=== PATIENT | male | born 1940 | race Caucasian/White ===

== ENCOUNTER 2017-11-14 19:15 | Inpatient (IN) | payer MEDICARE ==
[~2017-11-14] VITALS: Ht 182.9 cm; Wt 84.2 kg
--- NOTE | ~2017-11-14 | PN ---
PATIENT:AKHIL CURRAN MEDICAL RECORD: [id number] LOCATION:[facility] ADMISSION DATE: 11/14/17 PROGRESS NOTE DATE OF SERVICE: 11/16/2017 SUBJECTIVE: The patient's case was discussed with staff. He has no new complaint. OBJECTIVE: The patient is in good behavioral control with poor insight about his condition. He tolerates his medicines well. ASSESSMENT: No change in diagnoses. PLAN: The patient slept 10-1/2 hours last night. I am going to discontinue his trazodone and he has had no aggressive behaviors today. TRANSINT:[id number] Voice Confirmation ID: [id number] DOCUMENT ID: [id number] CHITO RADFORD MD at 1433 CC: [id number] DICTATION DATE: 11/16/17 1323 VEGETABLE FARMING SUPERVISOR: 11/16/17 1335 ADM IN [place] [id number] [place] [id number]
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
--- NOTE | ~2017-11-14 | PN ---
PATIENT:AKHIL CURRAN MEDICAL RECORD: [id number] LOCATION:[facility] ADMISSION DATE: 11/14/17 PROGRESS NOTE DATE OF SERVICE: 11/18/2017 SUBJECTIVE: The patient's case was discussed with staff. He has no new complaint. OBJECTIVE: The patient is in good behavioral control. He has limited insight about his condition. He tolerates his medicines well. ASSESSMENT: No change in diagnoses. PLAN: Brief supportive and educational interventions were made. The patient's long-term prognosis is guarded. TRANSINT:[id number] Voice Confirmation ID: [id number] DOCUMENT ID: [id number] CHITO RADFORD MD at 1349 CC: [id number] DICTATION DATE: 11/18/17 1231 SENIOR ANALYTICAL CHEMIST: 11/18/172027 ADM IN [place] [id number] [place] [address]
--- NOTE | ~2017-11-14 | PN ---
PATIENT:AKHIL CURRAN MEDICAL RECORD: [id number] LOCATION:[facility] ADMISSION DATE: 11/14/17 PROGRESS NOTE DATE OF SERVICE: 11/20/2017 SUBJECTIVE: The patient's case was discussed with staff. He has no new complaint. OBJECTIVE: The patient is in good behavioral control with no aggressive behaviors. He does not appear to be oversedated. ASSESSMENT: No change in diagnoses. PLAN: Supportive and educational interventions were made. I anticipate the patient can be transitioned out of the hospital tomorrow given his current level of improvement. TRANSINT:[id number] Voice Confirmation ID: [id number] DOCUMENT ID: [id number] CHITO RADFORD MD at 1442 CC: [id number] DICTATION DATE: 11/20/17 1439 SUPERANNUATION FUNDS MANAGER: 11/20/17 1738 DIS IN 11/21/17 [place] [id number] [place] [address]
--- NOTE | ~2017-11-14 | PN ---
PATIENT:AKHIL CURRAN MEDICAL RECORD: [id number] LOCATION:[facility] ADMISSION DATE: 11/14/17 PROGRESS NOTE DATE OF SERVICE: 11/17/2017 SUBJECTIVE: The patient's case was discussed with staff. He has no new complaint. OBJECTIVE: The patient is severely impaired cognitively with limited insight about his condition. ASSESSMENT: No change in diagnoses. PLAN: The patient looks a little over sedated. I am going to reduce his Klonopin to 0.5 mg twice daily. His long-term prognosis is guarded. He has not been aggressive today. TRANSINT:[id number] Voice Confirmation ID: [id number] DOCUMENT ID: [id number] CHITO RADFORD MD at 1215 CC: [id number] DICTATION DATE: 11/17/17 1449 MARKET RESEARCH EXECUTIVE: 11/17/172002 ADM IN [facility] [address] [place] [address]
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
--- NOTE | ~2017-11-14 | PN ---
PATIENT:AKHIL CURRAN MEDICAL RECORD: [id number] LOCATION:[facility] ADMISSION DATE: 11/14/17 PROGRESS NOTE DATE OF SERVICE: 11/21/2017 SUBJECTIVE: The patient's case was discussed with staff. He has no new complaint. OBJECTIVE: The patient is in good behavioral control with poor insight about his condition. He has no evidence of acute or direct dangerousness to himself or others. ASSESSMENT: No change in diagnoses. PLAN: The patient will be transitioned out of the hospital today. His long-term prognosis is guarded. TRANSINT:[id number] Voice Confirmation ID: [id number] DOCUMENT ID: [id number] CHITO RADFORD MD at 1637 CC: [id number] DICTATION DATE: 11/21/17 1448 HAND MODEL: 11/21/17 1507 DIS IN 11/21/17 [place] [id number] [place] [address]
[~2017-11-14 19:15] MED LIST: ASPIRIN325 MG PO; ATIVAN0.5 MG PO; CHLORTHALIDONE25 MG PO; DILANTIN100 MG PO; DULCOLAX5 MG PO; ELIQUIS5 MG PO; HYDROCODONE-APA1 TAB PO; IPRAT-ALBUT 0.5-3 ML IH; LEXAPRO10 MG PO; LIPITOR40 MG PO; LOPRESSOR25 MG PO; MILK OF MAGNESI30 ML PO; SENNA PLUS TA1 UDTAB PO; TRAZODONE HCL50 MG PO; VITAMIN B-121000 MCG PO; VITAMIN D31000 UNIT PO; ZOLOFT50 MG PO
[2017-11-15 05:57] VITALS: BP 129/73; BMI 24.4
[2017-11-15] MEDS ORDERED: LASIX20 MG PO (08:13)
[2017-11-15] MEDS ORDERED: LEVAQUIN500 MG PO (08:15)
[2017-11-15] MEDS ORDERED: KLOR-CON 1010 MEQ PO (08:17)
[2017-11-15] MEDS ORDERED: ZOLOFT100 MG PO (08:20)
[2017-11-15] MEDS ORDERED: TRAZODONE HCL50 MG PO (08:22)
[2017-11-15] MEDS ORDERED: FAMOTIDINE10 MG PO (08:26)
[2017-11-15] MEDS ORDERED: MUCINEX600 MG PO (08:28)
[2017-11-15] MEDS ORDERED: XOPENEX HFA15 GM INH ×2 (08:30→08:37)
[2017-11-15] MEDS ORDERED: TUMS500 MG PO (08:33)
[2017-11-15] MEDS ORDERED: ATIVAN0.5 MG PO (08:35)
[2017-11-15 10:46] VITALS: BP 155/72
[2017-11-15 10:51] VITALS: BMI 24.5
[2017-11-15 12:52] LABS: BASOPHILS 0.3 % (0-2); EOSINOPHILS 4.1 % (0-7); HEMATOCRIT 48.7 % (42.0-54.0); HEMOGLOBIN 16.5 g/dL (13.5-17.5); IMMATURE GRANULOCYTES 0.2 % (0-5); LYMPHOCYTES 28.6 % (15-50); MCH 33.3 pg (26.0-34.0); MCHC 33.9 g/dL (31.0-37.0); MCV 98.4 fL (80.0-100.0); MEAN PLATELET VOLUME 9.6 fL (7.4-10.4); MONOCYTES 8.6 % (2-11); NEUTROPHILS 58.2 % (40-80); RBC 4.95 10x6/uL (4.20-6.10); RDW 14.5 % (11.5-14.5); WBC 5.9 10x3/uL (4.8-10.8)
[2017-11-15 12:58] LABS: PLATELET COUNT 234 10x3/uL (130-400)
[2017-11-15 13:36] LABS: ALBUMIN 3.7 g/dL (3.4-5.0); ALKALINE PHOSPHATASE 153 U/L (46-116); ALT (SGPT) 39 U/L (10-68); BILIRUBIN - TOTAL 0.41 mg/dL (0.2-1.3); CALC OSMOLALITY 291 mosm/kg (275-300); CALCIUM 9.4 mg/dL (8.5-10.1); CARBON DIOXIDE 33.4 mmol/L (21.0-32.0); CHLORIDE - SERUM 107 mmol/L (98-107); CHOL - HDL RATIO 2.3 ratio (2.3-4.9); CHOLESTEROL, TOTAL 122 mg/dL (0-200); GLUCOSE 123 mg/dL (74-106); HDL CHOLESTEROL 53 mg/dL (32-96); HEMOGLOBIN A1C 5.3 % (4.8-6.0); LDL CHOLESTEROL 55 mg/dL (0-100); PHENYTOIN (DILANTIN) 19.6 ug/mL (10.0-20.0); POTASSIUM - SERUM 4.2 mmol/L (3.5-5.1); SODIUM 145 mmol/L (136-145); TRIGLYCERIDE 71 mg/dL (30-200); UREA NITROGEN 17 mg/dL (7-18); eGFR NON AFRICAN AMERICAN 77 mL/min (90-120)
[2017-11-15 20:41] VITALS: BP 140/70
[2017-11-16 07:21] LABS: RAPID PLASMA REAGIN Non Reactive (Non Reactive)
[2017-11-16 08:16] LABS: VITAMIN D 25 HYDROXY 49.9 ng/mL (30.0-100.0)
[2017-11-16 09:03] LABS: APPEARANCE CLEAR (CLEAR); BILIRUBIN NEGATIVE (NEGATIVE); COLOR DK YELLOW (YELLOW); GLUCOSE NEGATIVE (NEGATIVE); KETONE NEGATIVE (NEGATIVE); NITRITE NEGATIVE (NEGATIVE); PROTEIN NEGATIVE (NEGATIVE); UROBILINOGEN NORMAL (NORMAL)
[2017-11-16 09:31] VITALS: BP 138/78
[2017-11-16 13:22] VITALS: Ht 182.9 cm; Wt 84.2 kg
[2017-11-16 19:30] VITALS: BP 158/60
[2017-11-17 08:30] VITALS: BP 143/059
[2017-11-17 19:53] VITALS: BP 124/72
[2017-11-18 09:11] VITALS: BP 151/65
[2017-11-18 19:30] VITALS: BP 139/87
[2017-11-19 07:00] VITALS: BP 115/56
[2017-11-19 20:10] VITALS: BP 150/60
[2017-11-20 07:00] VITALS: BP 125/68
[2017-11-20 19:46] VITALS: BP 123/54
[2017-11-21 08:30] VITALS: BP 131/066
== END 2017-11-21 13:05 | DRG 57 ==
LOC: D.PSYCH 19:15
PROVIDERS: Psychiatry & Neurology Psychiatry
DX: I69.919 Unspecified symptoms and signs involving cognitive functions following unspecified cerebrovascular disease (principal); F01.51 Vascular dementia, unspecified severity, with behavioral disturbance; I69.954 Hemiplegia and hemiparesis following unspecified cerebrovascular disease affecting left non-dominant side; F32.9 Major depressive disorder, single episode, unspecified; F41.8 Other specified anxiety disorders; G40.909 Epilepsy, unspecified, not intractable, without status epilepticus; K21.9 Gastro-esophageal reflux disease without esophagitis; E53.8 Deficiency of other specified B group vitamins; E55.9 Vitamin D deficiency, unspecified; E78.5 Hyperlipidemia, unspecified; J44.9 Chronic obstructive pulmonary disease, unspecified; I10 Essential (primary) hypertension